=== PATIENT | female | born 1935 | race Caucasian/White ===

== ENCOUNTER 2019-09-06 09:48 | Inpatient (IN) | payer MEDICARE ==
[2019-09-06] VITALS (11 sets, daily range): BP systolic 85–156; BP diastolic 54–75
[~2019-09-06] VITALS: Ht 149.9 cm; Wt 50.9 kg
[2019-09-06] MEDS ORDERED: ONDANSETRON 4MG/2ML VIAL (J2405) IV ONE (10:15)
--- NOTE | 2019-09-06 10:48 | REP ---
CT brain: 09/06/2019. Indication: Stroke. Comparison: None. Technique: Unenhanced axial CT images of the brain were obtained from skull base to vertex. Findings: Artifact is noted in the left frontal region. No definite acute intracranial hemorrhage is present. There is no acute cortical infarction, mass effect or hydrocephalous. Diffuse volume loss is present. Patchy areas of cerebral white matter hypoattenuation are noted most consistent with chronic small vessel disease. Intracranial atherosclerotic disease is present most pronounced involving the left V4 segment. Impression: No acute intracranial process. Volume loss and sequelae of chronic microangiopathic ischemic disease. Electronically Signed by Paul Heath DO 09/06/2019 10:40 A
--- NOTE | 2019-09-06 10:54 | REP ---
CT cervical spine: 09/06/2019. Indication: Cervical spine trauma. Comparison: None. Technique: Unenhanced axial CT images of the cervical spine were performed with coronal and sagittal reconstructions provided. Findings: Soft tissue emphysema is noted throughout the neck and visualized mediastinum particularly on the left. No apical pneumothorax is detected. There is no acute fracture, subluxation or dislocation. Spondylosis is present most pronounced at C5/C6 and C6/C7 with diffuse disc osteophyte and considerable disc space narrowing. There is no evidence of hemorrhage or additional acute post traumatic sequelae within the spinal canal. Carotid atherosclerotic disease is noted. Impression: No acute osseous injury of the cervical spine. Soft tissue emphysema as described. Dedicated chest CT is recommended. Electronically Signed by Paul Heath DO 09/06/2019 10:46 A
[2019-09-06 11:00] LABS: BASO % 0.2 % (0.0-1.0); HEMATOCRIT 41.8 % (36.0-47.0); HEMOGLOBIN 12.8 g/dl (12.0-15.5); LYMPH # 0.4 10^3/uL (1.5-5.0); LYMPH % 1.8 % (24.0-44.0); MEAN CORPUSCULAR HEMOGLOBIN 29.5 pg (27.0-33.0); MEAN CORPUSCULAR HGB CONC 30.6 g/dl (32.0-36.5); MEAN CORPUSCULAR VOLUME 96.3 fl (80.0-96.0); MONO # 1.6 10^3/uL (0.0-0.8); MONO % 8.1 % (0.0-5.0); NEUTROPHILS # 17.4 10^3/uL (1.5-8.5); PLATELET COUNT, AUTOMATED 268 10^3/uL (150-450); RED BLOOD COUNT 4.34 10^6/uL (4.00-5.40); WHITE BLOOD COUNT 19.5 10^3/uL (4.0-10.0)
--- NOTE | 2019-09-06 11:11 | REP ---
CHEST, PORTABLE: AP portable view of the chest is performed. COMPARISON: No comparison study. Pneumomediastinum is present tracking up into the soft tissues of the neck. No pneumothorax is seen. There is no acute infiltrate. The heart is normal in size. There is calcification and tortuosity of the thoracic aorta. IMPRESSION: Pneumomediastinum. Dr. Pa was informed of these findings at the time of the exam at approximately 10:40 09/06/2019. Electronically Signed by Christ Avila MD 09/07/2019 10:38 A
[2019-09-06] MEDS ORDERED: INSULIN IV RATE CHANGE DOCUMENTATION ML/HR XX SCH (11:15)
[2019-09-06] MEDS ORDERED: INSULIN HUMAN REGULAR 100 UNITS in NS 99 ML IV SCH (11:15)
[2019-09-06] MEDS: NS 1,000 ML IV SCH (11:30)
[2019-09-06] MEDS ORDERED: FURO40TA2 PO (11:31)
[2019-09-06] MEDS ORDERED: LEVO150T7 PO (11:31)
[2019-09-06] MEDS ORDERED: FERR325T16 PO (11:31)
[2019-09-06] MEDS ORDERED: NOVOINJ3 SC (11:31)
[2019-09-06] MEDS ORDERED: BASA100I SC (11:31)
[2019-09-06 11:49] LABS: ALBUMIN 4.2 GM/DL (3.2-5.2); BILIRUBIN,DIRECT 0.3 MG/DL (0.0-0.2); BILIRUBIN,TOTAL 1.2 MG/DL (0.2-1.0); CK-MB VALUE MASS 12.4 NG/ML (<3.6); MAGNESIUM LEVEL 1.8 MG/DL (1.8-2.4); MB/CK RELATIVE INDEX 2.07 (< OR =4); TOTAL PROTEIN 7.6 GM/DL (6.4-8.2); TROPONIN I 1.69 NG/ML (< 0.10)
--- NOTE | 2019-09-06 12:05 | REP ---
CT CHEST WITHOUT CONTRAST: HISTORY: Trauma. Comparison is made with today's portable chest x-ray showing pneumomediastinum. CT FINDINGS: Digital preliminary exterior work helper radiograph demonstrates a pneumomediastinum seen on the radiograph. Lung todd appear clear. On axial CT images, there is no evidence of infiltrate or significant atelectasis. There is no evidence of pneumothorax or hydrothorax on either side. There is a sliding type hiatal hernia. There are granulomatous lymph node calcifications in the right hilus and in the mediastinum. There is a calcified granuloma in the right middle lobe. There is no evidence of mediastinal hematoma. Tracheobronchial tree is unremarkable. Some vascular calcifications noted. There is a low-density lesion with peripheral calcification in the spleen. This measures approximately 1.9 cm in diameter and is consistent with a small splenic cyst. No fracture or bony destructive lesion is seen. IMPRESSION: Moderate pneumomediastinum is noted. Hiatal hernia is seen. Vascular calcification is noted. Old granulomatous calcifications are noted. There is a small splenic cyst. Otherwise no acute abnormality. Electronically Signed by Sunil Wei MD 09/06/2019 05:16 P
--- NOTE | 2019-09-06 12:13 | REP ---
CT ABDOMEN AND PELVIS WITHOUT IV OR ORAL CONTRAST: HISTORY: Trauma. FINDINGS: There is a moderate size sliding type hiatal hernia. A 2 cm peripherally calcified low-density lesion is seen in the spleen consistent with a splenic cyst. No other focal splenic lesion is seen. No hepatic lesion is observed. There is no evidence of hemoperitoneum or pneumoperitoneum. No adrenal lesion is seen. No abnormality is noted in the gallbladder or in the pancreas. The kidneys are somewhat atrophic. There is no evidence of hydronephrosis or renal injury. The patient is status post right partial colectomy. There are scattered garza colonic diverticulosis most numerous in the sigmoid colon. There is no CT evidence of diverticulitis. The urinary bladder is somewhat distended but appears intact. There is spray artifact from bilateral hip prosthesis sees and metallic lumbar spine fusion hardware. Vascular calcification is seen in a normal caliber aorta. IMPRESSION: Pancolonic diverticulosis status post partial right colectomy. Urinary bladder is distended. Small cyst in the spleen. Moderate size sliding hiatal hernia. No traumatic abdominal or pelvic abnormality seen. Electronically Signed by Sunil Wei MD 09/06/2019 05:16 P
--- NOTE | 2019-09-06 15:37 | REP ---
Intracranial MRA: 09/06/2019. Indication: Stroke. Comparison: None. Findings: Significantly reduced or absent flow related enhancement is noted within the left V4 segment. No distinct left PICA flow related enhancement is present. There is signal within the ICAs as well as the MCA and ELIZABETH vessels bilaterally. No distinct ACoA is demonstrated. Small left PCoA is noted. No aneurysm or AVM is detected. Impression: Severely stenotic or occluded left V4 segment. 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 Electronically Signed by Paul Heath DO 09/06/2019 03:27 P
[2019-09-06 15:42] LABS: INR 1.04; PROTHROMBIN TIME 13.3 SECONDS (11.8-14.0)
[2019-09-06 15:43] LABS: PARTIAL THROMBOPLASTIN TIME 25.7 SECONDS (25.0-38.4)
--- NOTE | 2019-09-06 15:48 | REP ---
MRI brain: Of 07/16. Indication: Stroke. Comparison: None. Technique: Multiplanar short and long TR sequences of the brain were performed without IV Gadolinium. Findings: Predominately left hemisphere cortical restricted diffusion is present within the ELIZABETH and MCA territories as well as minimally within the left MANAGER AGRICULTURE territory. There is no significant mass effect. No significant hemorrhage is detected. There is no hydrocephalus. Right maxillary sinus fluid and small left greater than right mastoid effusions are present. Chronic left thalamic lacunar infarction is noted. There are a few small areas of elevated white matter T2 signal within the cerebral hemispheres as well. Volume loss is present. Impression: Acute left ELIZABETH and MCA infarctions without mass effect or hemorrhage. Small punctate acute left MANAGER AGRIC[employer]URE infarctions as well. Extracranial carotid/vertebral CTA is recommended. Volume loss and sequelae of chronic microangiopathic ischemic disease. Electronically Signed by Paul Heath DO 09/06/2019 03:39 P
[2019-09-06 17:54] LABS: ALBUMIN 4.2 GM/DL (3.2-5.2); BILIRUBIN,TOTAL 1.2 MG/DL (0.2-1.0); CALCIUM LEVEL 9.5 MG/DL (8.8-10.2); CREATININE FOR GFR 2.76 MG/DL (0.55-1.30); GLOMERULAR FILTRATION RATE 17.4 (>32); POTASSIUM SERUM 3.8 MEQ/L (3.5-5.1); TOTAL PROTEIN 7.6 GM/DL (6.4-8.2); TROPONIN I 2.3 NG/ML (< 0.10)
--- NOTE | 2019-09-06 17:54 | HPEPDOC ---
[facility] Medical History & Physical Date of Admission Sep 06, 2019 Date of Service: Sep 06, 2019 History and Physical CHIEF COMPLAINT: Unresponsiveness HISTORY OF PRESENT ILLNESS: Patient is 83F with PMH TIAs, IDDM, L. carotid artery stenosis s/p CEA, CKD 4, CHF of unknown type, Colon cancer s/p resection in February brought in by family after found unresponsive at home. She was last noted to be well yesterday morning/afternoon and was found this morning at about 9AM. Upon arrival, patient was moving her L. extremities but has not been alert. History provided all by daughters at bedside. In ER, multiple problems were noted including hyperglycemia with BS >700, leukocytosis, lactic acidosis, elevated Troponin and CK, as well as pneumomediastinum. Initial CT head does not show evidence of acute changes but follow up MRI shows evidence of acute CVA of the L. ELIZABETH and MCA. Per daughter, patient was noted to throw up several days prior and was found to have blood in her mouth today, thinking that it was from her dentures. No other problems were noted by daughter and no further history was able to obtain. PAST MEDICAL HISTORY: Refer to [facility] PAST SURGICAL HISTORY: back surgery, b/l hip, L. sided endarderectomy SOCIAL HISTORY: Denies tobacco, alcohol or illicit drug use. FAMILY HISTORY: Brother and father- DM ALLERGIES: Please see below. REVIEW OF SYSTEMS: Unable to obtain HOME MEDICATIONS: Please see below. PHYSICAL EXAMINATION: General: Not alert, spontaneous R. sided limb movements Eyes: Normal sclera HENT: Atraumatic, neck supple Cardiovascular: Tachycardia Pulmonary: Clear to auscultation b/l, no wheezing GI: Soft, nondistended, midline surgical scar with some erythema Skin: Warm and dry Neuro: Unable to assess LABORATORY DATA: See below. IMAGING: CT Head- Impression: No acute intracranial process. Volume loss and sequelae of chronic microangiopathic ischemic disease. CT Chest- IMPRESSION: Moderate pneumomediastinum is noted. Hiatal hernia is seen. Vascular calcification is noted. Old granulomatous calcifications are noted. There is a small splenic cyst. Otherwise no acute abnormality. CT Abdomen/pelvis- IMPRESSION: Pancolonic diverticulosis status post partial right colectomy. Urinary bladder is distended. Small cyst in the spleen. Moderate size sliding hiatal hernia. No traumatic abdominal or pelvic abnormality seen. Intracranial MRA- Impression: Severely stenotic or occluded left V4 segment. 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 MRI Brain- Impression: Acute left ELZIABETH and MCA infarctions without mass effect or hemorrhage. Small punctate acute left SLAG PRODUCTION WORKER infarctions as well. Extracranial carotid/vertebral CTA is recommended. Volume loss and sequelae of chronic microangiopathic ischemic disease. MICROBIOLOGY: Please see below. ASSESSMENT AND PLAN: 1. Acute CVA - Acute L. ELIZABETH and MCA infarction, appear to be early stages on MRI. - Patient not alert but moves L. sided extremities spontaneously. Unknown onset, last seen well one day prior to presentation. - Neurology consulted. Plan to repeat CT imaging in AM. - ASA suppository. 2. Hyperglycemia in setting of IDDM - Hyperglycemic on presentation but now down to 173. - AG 15 but NO acidosis on ABG, not likely in DKA, likely gap from lactic acidosis. - c/w SQ insulin. 3. CKD 4 - Chronic. Monitor BMP. 4. CHF - Unknown type. No documented ECHO previously. - NO clear evidence of fluid overload at this time. - Monitor. 5. Suspected sepsis with lactic acidosis - elevated troponin, CK, and lactic acid. - Infectious vs. muscle breakdown. - Start on broad spectrum Abx. IVF support, no aggressive bolus due to history of CHF. - f/u repeat lactic acid. 6. Elevated troponin - In setting of impaired kidney function and muscle breakdown, cannot definitely rule out NSTEMI however. - Family had decided against any aggressive intervention. - Monitor for now. 7. hx Colon cancer - s/p resection 8. Pneumomediastinum - suspect 2/2 esophageal tear from history of vomiting and blood around the m outh. - Family does not want surgical intervention. - c/w antibiotics and monitor. DVT ppx: TEDs in setting of bleeding Code status: DNR/DNI, no aggressive surgical interventions, no central line placement for pressors. Vital Signs Vital Signs Date Time Temp Pulse Resp B/P (MAP) Pulse Ox O2 Delivery O2 Flow Rate FiO2 09/06/19 16:45 116 26 106/60 (75) 97 Room Air 09/06/19 10:30 97.7 Laboratory Data Labs 24H Laboratory Tests 2 09/06/19 09:57: Immature Granulocyte % (Auto) 0.9, Neutrophils (%) (Auto) 89.0H, Lymphocytes (%) (Auto) 1.8L, Monocytes (%) (Auto) 8.1H, Eosinophils (%) (Auto) 0.0, Basophils (%) (Auto) 0.2, Neutrophils # (Auto) 17.4H, Lymphocytes # (Auto) 0.4L, Monocytes # (Auto) 1.6H, Eosinophils # (Auto) 0.0, Basophils # (Auto) 0.0, Nucleated Red Blood Cells % (auto) 0.0, Phosphorus Level 6.0H, Magnesium Level 1.8, Total Bilirubin 1.2H, Direct Bilirubin 0.3H, Aspartate Amino Transf (AST/SGOT) 29, Alanine Aminotransferase (ALT/SGPT) 25, Alkaline Phosphatase 96, Total Creatine Kinase 600H, Creatine Kinase MB 12.4H, Creatine Kinase MB Relative Index 2.07, Troponin I 1.69*H, Total Protein 7.6, Albumin 4.2, Albumin/Globulin Ratio 1.24 09/06/19 10:53: Bedside Prothrombin Time INR 0.9, Prothrombin Time (MISC) 11.3L 09/06/19 10:57: POC Glucose (Misc Panel) > 700*H, POC Sodium (Misc Panel) 132L, POC Potassium (Misc Panel) 4.5, POC Chloride (Misc Panel) 99, POC Total CO2 (Misc Panel) 19.0L, POC Blood Urea Nitrogen (Misc Panel 33H, POC Ionized Calcium (Misc Panel) 4.0L, POC Creatinine (Misc Panel) 2.0H, POC Hematocrit (Misc Panel) 42.0 09/06/19 12:16: POC Total CO2 (Misc Panel) 18.0L, POC pH (Misc Panel) 7.390, POC Base Excess (Misc Panel) -8.0L, POC Saturated Percent O2 (Misc) 95, POC pO2 (Misc Panel) 75.0L, POC pCO2 (Misc Panel) 28.8L, POC HCO3 (Misc Panel) 17.4L 09/06/19 12:52: Bedside Glucose (Misc Panel) 503*H 09/06/19 14:01: Bedside Glucose (Misc Panel) 379H 09/06/19 15:16: Bedside Glucose (Misc Panel) 300H 09/06/19 15:22: Prothrombin Time 13.3, Prothromb Time International Ratio 1.04, Activated Partial Thromboplast Time 25.7, Lactic Acid Level 4.8*H 09/06/19 16:58: Bedside Glucose (Misc Panel) 173H 09/06/19 17:14: CBC/BMP Laboratory Tests 09/06/19 09:57 Microbiology Microbiology 09/06/19 Blood Culture, Received Pending 09/06/19 Blood Culture, Received Pending Home Medications Scheduled Ferrous Gluconate (Ferrous Gluconate) 324 Mg Tablet, 324 MG PO DAILY Furosemide (Furosemide) 40 Mg Tablet, 40 MG PO DAILY Insulin Aspart (Novolog Flexpen) 100 Unit/1 Ml Insuln.pen, 1 DOSE SC AC PER SLIDING SCALE Insulin Glargine,Hum.rec.anlog (Basaglar Kwikpen U-100) 100 Unit/1 Ml Insuln.pen, 15 UNIT SC QHS Levothyroxine Sodium (Levothyroxine Sodium) 150 Mcg Tablet, 150 MCG PO DAILY LAST FILLED MARCH 2019, FAMILY VERIFIED ACTIVE MED Allergies Coded Allergies: Sulfa (Sulfonamide Antibiotics) (Verified Allergy, Mild, ITCH/RASH, 09/06/19) A-FIB/CHADSVASC A-FIB History Current/History of A-Fib/PAF?: No ANA MARIA SPARROW MD Sep 06, 2019 17:54
[2019-09-06] MEDS: HumaLOG INSULIN (NovoLOG) PER UNIT SC SCH (18:00)
--- NOTE | 2019-09-06 18:32 | ECGEPIP ---
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
[2019-09-06] MEDS ORDERED: DEXTROSE 50% 50 ML SYRINGE IV PRN (18:45)
[2019-09-06] MEDS ORDERED: GLUCAGON FOR INJ 1 MG VIAL (J1610) SC PRN (18:45)
[2019-09-06] MEDS ORDERED: GLUCOSE 4 GM CHEW TABLET PO PRN (18:45)
[2019-09-06] MEDS ORDERED: ASPIRIN 300 MG SUPP PR ONE (20:00)
[2019-09-06] MEDS ORDERED: VANCOMYCIN HCL 1,000 MG, VIAL MATE ADAPTER 1 EACH in D5W 250 ML IV SCH (21:00)
[2019-09-06] MEDS ORDERED: LEVEMIR (INSULIN DETEMIR) 1 UNITS/0.01ML SC SCH (21:00)
[2019-09-06] MEDS: PIPERACILLIN/TAZOBACTAM SOD 2.25 GM in D5W MINI-BAG PLUS 50 ML IV SCH (21:01)
--- NOTE | 2019-09-06 21:30 | PHACANCOPD ---
PHARMACY VANCOMYCIN DOSING Pt Demographics Demographics Patient Age:83 , Weight:52.000 , Gender: female Adjusted Body Weight Date: 09/06/19, Adjusted Body Weight: Kg Events Past 24 Hours Events Past 24 Hours: NO: Dialysis, Diuretic Therapy, Change in CrCl, Fever, Elevation in WBC, Pending Diagnostics, Pending Procedures, Other Vancomycin Vancomycin indication: Sepsis Vancomycin Target Ranges: 15-20 mcg/ml Vancomycin Load Y/N: Yes Load Dose Date Time Vancomycin Load Dose: 1000mg Date: 09/06/19 Time: 2100 Vancomycin Dose Date: 09/06/19. Current Vancomycin Dose: [ 1 gram Q24H ] Intermittent Dosing?: No Labs Labs Vital Signs Label Value Date Time Patient Temperature 97.4 degrees F 09/06/19 1700 Temperature Source Temporal 09/06/19 1700 Blood Pressure Assessment 162/87 (112) 09/06/19 1200 Blood Pressure Assessment 135/66 (89) 09/06/19 1230 Blood Pressure Assessment 134/74 (94) 09/06/19 1300 Blood Pressure Assessment 110/63 (79) 09/06/19 1523 Blood Pressure Assessment 106/60 (75) 09/06/19 1645 Blood Pressure Assessment 112/62 (79) 09/06/19 1630 Blood Pressure Assessment 108/59 (75) 09/06/19 1600 Blood Pressure Assessment 109/62 (78) 09/06/19 1530 Item Value Date Time White Blood Count 19.5 10^3/uL H 09/06/19 0957 Lactic Acid Level 4.8 MMOL/L *H 09/06/19 1522 Creatinine 2.76 MG/DL H 09/06/19 1714 Glomerular Filtration Rate 17.4 L 09/06/19 1714 Micro Microbiology 09/06/19 Blood Culture, Received Pending 09/06/19 Blood Culture, Received Pending Creatinine Clearance Date:09/06/19. Creatinine Clearance: [ 11.3 mL/min ]. Assessment and Plan Maintaining Current Dose?: Yes Reason for dose change: No Dose Change Pharmacist Note Pharmacist Note Date: 09/06/19. Pharmacist note: Patient is a 83 year old female who presented to [facility] after being found unresponsive this morning. She has a pertinent past medical history of chronic kidney disease. Ms. Jorgensen was found to have an elevated white blood cell and lactic acid. She was placed on empiric antibiotic therapy for treating sepsis. She has no previous history of vancomycin therapy at [facility], so she was given a 1000mg loading dose with a subsequent maintenance dose of 1 gram every 24 hours. A trough level was scheduled for 09/07/19, prior to her second dose, considering her weak renal function. We will continue to monitor and make adjustments as necessary. PAUL KAY [facility] Sep 06, 2019 21:30
[2019-09-07] VITALS (9 sets, daily range): BP systolic 115–170; BP diastolic 55–73
[2019-09-07] MEDS: NS 1,000 ML IV SCH ×3 (00:35→08:49)
[2019-09-07] MEDS: HumaLOG INSULIN (NovoLOG) PER UNIT SC SCH ×3 (00:54→11:22)
[2019-09-07] MEDS: PIPERACILLIN/TAZOBACTAM SOD 2.25 GM in D5W MINI-BAG PLUS 50 ML IV SCH ×2 (04:40→11:37)
[2019-09-07 05:20] LABS: HEMATOCRIT 34.5 % (36.0-47.0); HEMOGLOBIN 11.1 g/dl (12.0-15.5); MEAN CORPUSCULAR HEMOGLOBIN 28.8 pg (27.0-33.0); MEAN CORPUSCULAR HGB CONC 32.2 g/dl (32.0-36.5); MEAN CORPUSCULAR VOLUME 89.6 fl (80.0-96.0); PLATELET COUNT, AUTOMATED 216 10^3/uL (150-450); RED BLOOD COUNT 3.85 10^6/uL (4.00-5.40); WHITE BLOOD COUNT 24.2 10^3/uL (4.0-10.0)
[2019-09-07 05:42] LABS: CALCIUM LEVEL 8.9 MG/DL (8.8-10.2); CREATININE FOR GFR 2.87 MG/DL (0.55-1.30); GLOMERULAR FILTRATION RATE 16.7 (>32); POTASSIUM SERUM 3.7 MEQ/L (3.5-5.1)
--- NOTE | 2019-09-07 07:01 | CR ---
DATE OF CONSULTATION: 09/06/2019 REFERRING PHYSICIAN: Timbo Calvert MD REASON FOR CONSULTATION: Stroke. HISTORY OF PRESENT ILLNESS: Anuja Jorgensen is a 83-year-old woman with history of insulin-dependent diabetes, left carotid endarterectomy, chronic kidney disease, colon cancer who was last known fine yesterday evening. Her daughter found her this morning unresponsive on the floor. She was laying on her left side. She was unable to speak. She appeared to have right-sided weakness. Her blood sugar was more than 700 and she had blood drooling out of her mouth. She remains unresponsive and unable to provide any history. CT scan of her head was unremarkable. MRI scan of brain showed possible early left middle cerebral artery and anterior cerebral artery ischemic stroke. MRA brain showed left vertebral occlusion. PAST MEDICAL HISTORY: As per HPI. PAST SURGICAL HISTORY: History of bilateral hip replacement. Left carotid endarterectomy. SOCIAL HISTORY: There is no report of smoking, alcohol or illicit drugs. FAMILY HISTORY: Brother and father had diabetes. REVIEW OF SYSTEMS: A complete review of system was obtained and was unremarkable except as mentioned in the history of present illness. Review of systems was obtained from the patient's family. HOME MEDICATIONS: - ferrous gluconate 324 mg p.o. daily - insulin Basaglar 15 units subcutaneous at night - levothyroxine 150 mcg p.o. daily - Lasix 40 mg p.o. daily ALLERGIES: 1. SULFA. PHYSICAL EXAMINATION: Blood pressure 106/60, pulse 116, respiratory rate 26, 97% saturation on room air. Heart: Regular rate and rhythm. Lungs: Clear to auscultation. Abdomen: Soft, nontender, nondistended. No pedal edema. No musculoskeletal abnormalities. No rash. No signs of meningeal irritation. The patient is unresponsive to verbal stimuli. She withdraws to pain more so on left side. Her eyes are closed and she does not respond. Speech could not be tested, although the patient was unable to speak when her daughter found her. She has more spontaneous movement in her left arm and leg. Her right plantar is upgoing. Left plantar is downgoing. Sensory, cerebellar and gait testing could not be performed. DIAGNOSTIC STUDIES: The MRI scan and MRA brain are summarized above. WBCs were 19.5, lactic acid 4.8, creatinine 2, blood glucose decreased from [address] scan of chest showed pneumomediastinum. ASSESSMENT: 1. Possible left middle and anterior cerebral artery ischemic stroke. 2. Aphasia, coma and right hemiplegia related to above. PLAN: 1. CT angiogram of neck with contrast. It should be cleared by radiology as her creatinine is [address] scan of head tomorrow to see the extent of her ischemic stroke. On MRI scan of brain her stroke seems to be in early stages and complete size of stroke may not be clearly visible until 24 hours or more. 3. Aspirin 300 mg per rectum daily until she is awake or able to swallow. Her overall prognosis is guarded. I had a discussion with the patient's daughter and son about this.
[2019-09-07] MEDS ORDERED: ASPIRIN 300 MG SUPP PR SCH (09:00)
--- NOTE | 2019-09-07 09:24 | REP ---
CT brain: 09/07/2019. Indication: Stroke. Comparison: Yesterday. Technique: Unenhanced axial CT images of the brain were obtained from skull base to vertex. Findings: The recently described multifocal left cerebral hemisphere infarctions are now apparent by CT evaluation without hemorrhagic conversion or significant mass effect. Volume loss and sequelae of chronic microangiopathic ischemic disease are redemonstrated. Impression: Evolving left hemisphere infarctions without hemorrhagic transformation or significant mass effect. Electronically Signed by Paul Heath DO 09/07/2019 09:17 A
[2019-09-07] MEDS ORDERED: ACETAMINOPHEN 650 MG SUPP PR PRN (14:45)
[2019-09-07] MEDS ORDERED: ONDANSETRON 4MG/2ML VIAL (J2405) IV PRN (14:45)
[2019-09-07] MEDS ORDERED: LORazepam 2 MG/ML VIAL (J2060) IV PRN (14:45)
[2019-09-07] MEDS: MORPHINE 2 MG/ML 1ML VIAL (J2270) IV PRN ×2 (15:42→19:47)
[2019-09-07] MEDS: SCOPOLAMINE 1MG TRANSDERMAL PATCH TOP PRN (15:43)
--- NOTE | 2019-09-07 15:56 | IPNPDOC ---
Date Seen The patient was seen on 09/07/19. Progress Note SUBJECTIVE: Patient appeared to still be in some distress, eyes opens occasionally but does not communicate. Afebrile overnight. HR 90-100s overnight. Was called to bedside this morning as family wanted to make patient comfort measures only as patient appeared to be uncomfortable and family is concern that she continues to suffer. Patient was made BLEACHER LARD. All IV medications were stopped and medications for comfort are started along with hospice consultation. OBJECTIVE PHYSICAL EXAMINATION: VITAL SIGNS: Please see below. General: Occasional opening of eyes but no verbal communication. Appear to be uncomfortable with heavy respiratory effort. Eyes: Normal sclera HENT: Atraumatic Cardiovascular: Normal rate. Pulmonary: No wheezing appreciated, labored breathing GI: Soft, nondistended, midline surgical scar with some erythema Skin: Warm and dry Neuro: Unable to assess LABORATORY DATA, IMAGING STUDIES, MICROBIOLOGY: Please see below. ASSESSMENT AND PLAN: Patient is 83F with extensive PMH TIAs, IDDM, L. carotid artery stenosis s/p CEA, CKD 4, CHF of unknown type, Colon cancer s/p resection in February brought in by family after found unresponsive at home and found to have a L. sided ELIZABETH and MCA stroke in addition to pneumomediastinum suspicious for esophageal tear vs. carotid dissection. She was unresponsive on arrival with lactic acidosis, leukocytosis, elevated troponin and hyperglycemia BS >700. She was started on IV Abx and fluids and was also evaluated by neurology. Family has been at the bedside almost the entire time and had clearly stated that she is DNR/DNI and does not want any aggressive intervention including pressor support or any surgical procedures. Family decided to make patient comfort care after seeing minimal improvement in mental status with patient appear to be in discomfort. Vital signs, blood draws and antibiotics were stopped. Hospice consulted. VS, I&O, 24H, Fishbone Vital Signs/I&O Vital Signs Date Time Temp Pulse Resp B/P (MAP) Pulse Ox O2 Delivery O2 Flow Rate FiO2 09/07/19 12:00 98.7 88 20 147/65 (92) 97 Nasal Cannula 3.0 I&O- Last 24 Hours up to 6 AM 09/07/19 06:00 Intake Total 2320 ml Output Total 570 ml Balance 1750 ml Laboratory Data 24H LABS Laboratory Tests 2 09/06/19 16:58: Bedside Glucose (Misc Panel) 173H 09/06/19 17:14: Anion Gap 15, Glomerular Filtration Rate 17.4L, Calcium Level 9.5, Total Bilirubin 1.2H, Aspartate Amino Transf (AST/SGOT) 35, Alanine Aminotransferase (ALT/SGPT) 25, Alkaline Phosphatase 88, Troponin I 2.30#*H, Total Protein 7.6, Albumin 4.2, Albumin/Globulin Ratio 1.24 09/06/19 17:33: Bedside Glucose (Misc Panel) 153H 09/06/19 18:36: Urine Color STRAW, Urine Appearance CLEAR, Urine pH 6.0, Urine Specific Louise 1.012, Urine Protein 3+H, Urine Glucose (UA) 3+H, Urine Ketones 1+H, Urine Blood 1+H, Urine Nitrite NEGATIVE, Urine Bilirubin NEGATIVE, Urine Urobilinogen 0.2, Urine Leukocyte Esterase NEGATIVE, Urine WBC (Auto) 1, Urine RBC (Auto) 1, Urine Hyaline Casts (Auto) 0, Urine Bacteria (Auto) NEGATIVE, Urine Squamous Epithelial Cells 0, Urine Sperm (Auto) 09/06/19 20:47: Bedside Glucose (Misc Panel) 283H 09/07/19 00:39: Bedside Glucose (Misc Panel) 377H 09/07/19 05:02: Nucleated Red Blood Cells % (auto) 0.0, Anion Gap 8, Glomerular Filtration Rate 16.7L, Lactic Acid Level 1.4, Calcium Level 8.9 09/07/19 05:34: Bedside Glucose (Misc Panel) 126H 09/07/19 11:12: Bedside Glucose (Misc Panel) 183H CBC/BMP Laboratory Tests 09/06/19 17:14 09/07/19 05:02 Microbiology Microbiology 09/06/19 Blood Culture - Preliminary, Resulted No growth after 24 hours . All specim... 09/06/19 Blood Culture - Preliminary, Resulted No growth after 24 hours . All specim... ANA MARIA SPARROW MD Sep 07, 2019 15:56
[2019-09-08] MEDS: MORPHINE 2 MG/ML 1ML VIAL (J2270) IV PRN ×8 (07:13→22:59)
--- NOTE | 2019-09-08 16:27 | REP ---
CT brain: 09/08/2019. Indication: Stroke. Comparison: Yesterday. Technique: Unenhanced axial CT images of the brain were obtained from skull base to vertex. Findings: The multifocal left cerebral hemisphere infarctions continues to evolve without hemorrhagic transformation or significant mass effect. Chronic appearing left thalamic lacunar infarction is present. Volume loss and sequelae of chronic microangiopathic ischemic disease are redemonstrated. Impression: Evolving multifocal left cerebral hemisphere infarctions without hemorrhagic transformation or significant mass effect. Electronically Signed by Paul Heath DO 09/08/2019 04:18 P
--- NOTE | 2019-09-08 19:07 | IPNPDOC ---
Date Seen The patient was seen on 09/08/19. Progress Note SUBJECTIVE: Patient appeared to be more alert today and able to communicate although not clearly. Period episodes of frustrations noted. Goals of care in question as family has a difficult time deciding whether to keep patient C[facility]ANDY or continue care as she is more alert. No changes had been made as family plans to discuss with neurology prior. Repeat CT head completed. OBJECTIVE PHYSICAL EXAMINATION: VITAL SIGNS: Please see below. General: responsive, alert and follow some commands. Some verbal communication but not always clear. Eyes: Normal sclera HENT: Atraumatic Cardiovascular: Normal rate. Pulmonary: No wheezing appreciated. GI: Soft, nondistended, midline surgical scar with some erythema Skin: Warm and dry Neuro:Unable to fully assess. LABORATORY DATA, IMAGING STUDIES, MICROBIOLOGY: Please see below. ASSESSMENT AND PLAN: Patient is 83F with extensive PMH TIAs, IDDM, L. carotid artery stenosis s/p CEA, CKD 4, CHF of unknown type, Colon cancer s/p resection in February brought in by family after found unresponsive at home and found to have a L. sided ELIZABETH and MCA stroke in addition to pneumomediastinum suspicious for esophageal tear vs. carotid dissection. She was unresponsive on arrival with lactic acidosis, leukocytosis, elevated troponin and hyperglycemia BS >700. She was started on IV Abx and fluids and was also evaluated by neurology. Family has been at the bedside almost the entire time and had clearly stated that she is DNR/DNI and does not want any aggressive intervention including pressor support or any surgical procedures. Family had decided to make patient comfort care after seeing minimal improvement in mental status with patient appear to be in discomfort. Vital signs, blood draws and antibiotics were stopped. Hospice consulted. Patient now is waking up and has some form of communication. Goals of care decision in discussion among family members. VS, I&O, 24H, Fishbone Vital Signs/I&O Vital Signs Date Time Temp Pulse Resp B/P (MAP) Pulse Ox O2 Delivery O2 Flow Rate FiO2 09/08/19 09:00 3.0 09/08/19 07:13 16 09/07/19 12:00 98.7 88 147/65 (92) 97 Nasal Cannula I&O- Last 24 Hours up to 6 AM 09/08/19 06:00 Intake Total 0 ml Output Total 625 ml Balance -625 ml Laboratory Data Microbiology Microbiology 09/06/19 Blood Culture - Preliminary, Resulted No Growth after 48 hours. All Specime... 09/06/19 Blood Culture - Preliminary, Resulted No Growth after 48 hours. All Specime... ANA MARIA SPARROW MD Sep 08, 2019 19:07
[2019-09-08] MEDS ORDERED: HALOPERIDOL 5 MG/ML VIAL (J1630) IM SCH (21:00)
[2019-09-09] MEDS ORDERED: HALOPERIDOL 5 MG/ML VIAL (J1630) IM PRN (01:00)
[2019-09-09] MEDS: MORPHINE 2 MG/ML 1ML VIAL (J2270) IV PRN ×3 (13:45→22:07)
--- NOTE | 2019-09-09 18:59 | IPNPDOC ---
Date Seen The patient was seen on 09/09/19. Progress Note SUBJECTIVE: Patient condition declined today compare to yesterday. More lethargic and confused. Reportedly did not sleep well. No other events reported. OBJECTIVE PHYSICAL EXAMINATION: VITAL SIGNS: Please see below. General: responsive, alert and follow some commands. Some verbal communication but not always clear. Eyes: Normal sclera HENT: Atraumatic Cardiovascular: Normal rate. Pulmonary: No wheezing appreciated. GI: Soft, nondistended, midline surgical scar with some erythema Skin: Warm and dry Neuro:Unable to fully assess. LABORATORY DATA, IMAGING STUDIES, MICROBIOLOGY: Please see below. ASSESSMENT AND PLAN: Patient is 83F with extensive PMH TIAs, IDDM, L. carotid artery stenosis s/p CEA, CKD 4, CHF of unknown type, Colon cancer s/p resection in February brought in by family after found unresponsive at home and found to have a L. sided ELIZABETH and MCA stroke in addition to pneumomediastinum suspicious for esophageal tear vs. carotid dissection. She was unresponsive on arrival with lactic acidosis, leukocytosis, elevated troponin and hyperglycemia BS >700. She was started on IV Abx and fluids and was also evaluated by neurology. Family has been at the bedside almost the entire time and had clearly stated that she is DNR/DNI and does not want any aggressive intervention including pressor support or any surgical procedures. Family had decided to make patient comfort care after seeing minimal improvement in mental status with patient appear to be in discomfort. Vital signs, blood draws and antibiotics were stopped. Hospice consulted. Patient mental status and clinical condition waxes and wanes. Family had toured hospice facility and placed name on list, possible transfer to hospice next week if no changes in decision regarding SR. MANAGER/Hospice are made this weekend. [facility] Vital Signs Date Time Temp Pulse Resp B/P (MAP) Pulse Ox O2 Delivery O2 Flow Rate FiO2 09/09/19 17:14 18 09/08/19 09:00 3.0 09/07/19 12:00 98.7 88 147/65 (92) 97 Nasal Cannula I&O- Last 24 Hours up to 6 AM 09/09/19 06:00 Intake Total 720 ml Output Total 1000 ml Balance -280 ml Laboratory Data 24H LABS Laboratory Tests 2 09/09/19 17:55: Bedside Glucose (Misc Panel) 406H Microbiology Microbiology 12/10/19 Blood Culture - Preliminary, Resulted No Growth after 72 hours. All specime... 09/06/19 Blood Culture - Preliminary, Resulted No Growth after 72 hours. All specime... ANA MARIA SPARROW MD Sep 09, 2019 18:59
[2019-09-10] MEDS ORDERED: ONDANSETRON 4 MG ORAL DISINTEGRATING TAB (Q0162 PER 1MG) PO PRN (06:15)
[2019-09-10] MEDS: MORPHINE 10MG/0.5ML ORAL CONCENTRATE SOLUTION U/D SL PRN ×5 (06:22→18:21)
--- NOTE | 2019-09-10 18:27 | IPNPDOC ---
Date Seen The patient was seen on 09/10/19. Progress Note SUBJECTIVE: Patient much more lethargic today with agonal breathing in AM. Appear to be in more discomfort and less responsive. Has been sleeping most of the day. When awake, very weak with minimal verbal communication. OBJECTIVE PHYSICAL EXAMINATION: VITAL SIGNS: Please see below. General: responsive, lethargic. Eyes: Normal sclera HENT: Atraumatic Cardiovascular: Normal rate. Pulmonary: No wheezing appreciated. GI: Soft, nondistended, midline surgical scar with some erythema Skin: Warm and dry Neuro:Unable to fully assess. LABORATORY DATA, IMAGING STUDIES, MICROBIOLOGY: Please see below. ASSESSMENT AND PLAN: Patient is 83F with extensive PMH TIAs, IDDM, L. carotid artery stenosis s/p CEA, CKD 4, CHF of unknown type, Colon cancer s/p resection in February brought in by family after found unresponsive at home and found to have a L. sided ELIZABETH and MCA stroke in addition to pneumomediastinum suspicious for esophageal tear vs. carotid dissection. She was unresponsive on arrival with lactic acidosis, leukocytosis, elevated troponin and hyperglycemia BS >700. She was started on IV Abx and fluids and was also evaluated by neurology. Family has been at the bedside almost the entire time and had clearly stated that she is DNR/DNI and do es not want any aggressive intervention including pressor support or any surgical procedures. Family had decided to make patient comfort care after seeing minimal improvement in mental status with patient appear to be in discomfort. Vital signs, blood draws and antibiotics were stopped. Hospice consulted. Patient mental status and clinical condition waxes and wanes. 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 VS, I&O, 24H, Fishbone Vital Signs/I&O Vital Signs Date Time Temp Pulse Resp B/P (MAP) Pulse Ox O2 Delivery O2 Flow Rate FiO2 09/10/19 09:31 18 09/08/19 09:00 3.0 09/07/19 12:00 98.7 88 147/65 (92) 97 Nasal Cannula I&O- Last 24 Hours up to 6 AM 09/10/19 06:00 Intake Total 1700 ml Output Total 2450 ml Balance -750 ml Laboratory Data Microbiology Microbiology 09/06/19 Blood Culture - Preliminary, Resulted No Growth after 72 hours. All specime... 09/06/19 Blood Culture - Preliminary, Resulted No Growth after 72 hours. All specime... ANA MARIA SPARROW MD Sep 10, 2019 18:27
[2019-09-11] MEDS: MORPHINE 10MG/0.5ML ORAL CONCENTRATE SOLUTION U/D SL PRN ×8 (01:58→19:20)
--- NOTE | 2019-09-11 14:30 | IPNPDOC ---
Date Seen The patient was seen on 09/11/19. Progress Note SUBJECTIVE: Patient appear to continue declining today. Sleeps most of the day and not coherent when she tries to communicate periodically. Weakness persistent and breathing seem more labored. OBJECTIVE PHYSICAL EXAMINATION: VITAL SIGNS: Please see below. General: Minimal response, lethargic. Eyes: Normal sclera HENT: Atraumatic Cardiovascular: Normal rate. Pulmonary: No wheezing appreciated. GI: Soft, nondistended, midline surgical scar with some erythema Skin: Warm and dry Neuro:Unable to fully assess. LABORATORY DATA, IMAGING STUDIES, MICROBIOLOGY: Please see below. ASSESSMENT AND PLAN: Patient is 83F with extensive PMH TIAs, IDDM, L. carotid artery stenosis s/p CEA, CKD 4, CHF of unknown type, Colon cancer s/p resection in February brought in by family after found unresponsive at home and found to have a L. sided ELIZABETH and MCA stroke in addition to pneumomediastinum suspicious for esophageal tear vs. carotid dissection. She was unresponsive on arrival with lactic acidosis, leukocytosis, elevated troponin and hyperglycemia BS >700. She was started on IV Abx and fluids and was also evaluated by neurology. Family has been at the bedside almost the entire time and had clearly stated that she is DNR/DNI and does not want any aggressive intervention including pressor support or any surgical procedures. Family had decided to make patient comfort care after seeing minimal improvement in mental status with patient appear to be in discomfort. Vital signs, blood draws and antibiotics were stopped. Hospice consulted. Patient mental status and clinical condition waxes and wanes. Family had toured hospice facility and placed name on list, possible transfer to hospice next week if no changes in decision regarding SYBASE DEVELOPER/Hospice are made this weekend. With the initial improving in mental status the day after patient was made SYBASE DEVELOPER, there was more questioning of the right path to take. Informed family that patient can certainly have SYBASE DEVELOPER reversed if wishes but patient's status had declined since then. Not taking any solid foods or drink as much anymore. Family made clear that patient does not want feeding tubes, to be placed on dialysis or any aggressive intervention. VS, I&O, 24H, Fishbone Vital Signs/I&O Vital Signs Date Time Temp Pulse Resp B/P (MAP) Pulse Ox O2 Delivery O2 Flow Rate FiO2 09/11/19 11:56 18 Room Air 09/08/19 09:00 3.0 09/07/19 12:00 98.7 88 147/65 (70) 97 I&O- Last 24 Hours up to 6 AM 09/11/19 06:00 Intake Total 650 ml Output Total 1025 ml Balance -375 ml Laboratory Data Microbiology Microbiology 09/06/19 Blood Culture - Preliminary, Resulted No Growth after 72 hours. All specime... 09/06/19 Blood Culture - Final, Complete NO GROWTH AFTER 5 DAYS ANA MARIA SPARROW MD Sep 11, 2019 14:30
[2019-09-12] MEDS: MORPHINE 10MG/0.5ML ORAL CONCENTRATE SOLUTION U/D SL PRN ×2 (02:53→12:11)
[2019-09-12] MEDS: SCOPOLAMINE 1MG TRANSDERMAL PATCH TOP PRN (02:55)
[2019-09-12] MEDS ORDERED: LORA0.5T11 PO (10:12)
[2019-09-12] MEDS ORDERED: MORP20SO3 PO (10:12)
[2019-09-12] MEDS ORDERED: HYOS125TA PO (10:12)
--- NOTE | 2019-09-12 17:22 | DS.PDOC ---
Discharge Summary General Date of Admission Sep 06, 2019 at 16:06 Date of Discharge 09/12/19 Attending Physician: DILSHAD NEGRO MD Discharge Summary PROCEDURES PERFORMED DURING STAY: [None]. ADMITTING DIAGNOSES: 1. TIA 2. IDDM 3. Left carotid atery stenosis s/p CEA, 4. CKD stage IV, 5. CHF, Unknown type 6. Colon Cancer s/p resection in February 7. Left sided ELIZABETH and MCA stroke 8. Pneumomediastinum suspicious for esophageal tear vs. carotid dissection. DISCHARGE DIAGNOSES: 1. Left sided ELIZABETH and MCA stroke 2. Pneumomediastinum suspicious for esophageal tear vs. carotid dissection. 3. TIA 4. IDDM 5. Left carotid atery stenosis s/p CEA, 6. CKD stage IV, 7. CHF, Unknown type 8. Colon Cancer s/p resection in February COMPLICATIONS/CHIEF COMPLAINT: Altered Mental Status. HISTORY OF PRESENT ILLNESS: "Patient is 83F with extensive PMH TIAs, IDDM, L. carotid artery stenosis s/p CEA, CKD 4, CHF of unknown type, Colon cancer s/p resection in February brought in by family after found unresponsive at home and found to have a L. sided ELIZABETH and MCA stroke in addition to pneumomediastinum suspicious for esophageal tear vs. carotid dissection. HOSPITAL COURSE: "Patient was unresponsive on arrival to the hospital. She was Dx with Lactic acidosis, Leukocytosis, elevated troponins and Hyperglycemia with a blood sugar > 700. Patient was treated with IVF and antibiotics and assessed by neurology. Family declined any pressor support or surgical procedures for the patient as she is DNR/DNI. Family decided to make patient comfort care after she had little to no improvement in her mental health status and her apparent discomfort. Vital signs, blood drw\\german and antibiotics were discontinued. Hospice consulted with the family and eventually made the decision to have her transferred to a hospice facility. Patient has been unresponsive for a couple of day per her daughter. She has not taken any food and has had very little to drink. She appears very weak and no longer shows signs of awareness. DISCHARGE MEDICATIONS: Please see below. ALLERGIES: Please see below. PHYSICAL EXAMINATION ON DISCHARGE: VITAL SIGNS: Please see below. GENERAL:asleep, does not rouse HEENT:mucus membranes appear pink and moist CARDIOVASCULAR EXAMINATION: slow, distant HS RESPIRATORY EXAMINATION: slow, gasping breaths ABDOMINAL EXAMINATION: soft, nondistended EXTREMITIES: no edema SKIN: warm and dry NEUROLOGICAL EXAMINATION: unobtainable due to patient's current status LABORATORY DATA: Please see below. IMAGING: ACTIVITY: per Hospice DIET: As tolerated DISCHARGE PLAN: Discharge to Hospice care. DISPOSITION: Hospice Medical Facility. DISCHARGE INSTRUCTIONS: Management as per Hospice. ITEMS TO FOLLOWUP ON ON OUTPATIENT: N/A DISCHARGE CONDITION: Into Hospice care. TIME SPENT ON DISCHARGE: Greater than 36 minutes. Vital Signs/I&Os Vital Signs Date Time Temp Pulse Resp B/P (MAP) Pulse Ox O2 Delivery O2 Flow Rate FiO2 09/11/19 11:56 18 Room Air 09/08/19 09:00 3.0 09/07/19 12:00 98.7 88 147/65 (92) 97 I&O- Last 24 Hours up to 6 AM 09/12/19 06:00 Intake Total 60 ml Output Total 350 ml Balance -290 ml Microbiology Microbiology 09/06/19 Blood Culture - Final, Complete NO GROWTH AFTER 5 DAYS 09/06/19 Blood Culture - Final, Complete NO GROWTH AFTER 5 DAYS Discharge Medications Scheduled PRN Hyoscyamine Sulfate (Hyoscyamine Sulfate) 0.125 Mg Tab.subl, 0.125 MG PO Q4HP PRN for TERMINAL SECRETIONS Use sublingually if unable to swallow Lorazepam (Lorazepam) 0.5 Mg Tablet, 0.5 MG PO Q4HP PRN for ANXIETY/AGITATION Use sublingually if unable to swallow Morphine Sulfate (Morphine Sulfate) 100 Mg/5 Ml Solution, 0.25-1 ML PO Q2H PRN for PAIN OR DYSPNEA Use sublingually if unable to swallow Allergies Coded Allergies: Sulfa (Sulfonamide Antibiotics) (Verified Allergy, Mild, ITCH/RASH, 09/06/19) LALY ARREDONDO PA-C Sep 12, 2019 17:22
== END 2019-09-12 12:15 | disposition hospice, inpatient (51) | DRG 65 ==
LOC: M ED 09:48 → EDBD 09:48 → M ED INP 16:06 → M ICU 17:29 → M MS5PR 09-07 15:11
PROVIDERS: ADMIT Student in an Organized Health Care Education/Training Program; ATTEND Internal Medicine
DX: I63.512 Cerebral infarction due to unspecified occlusion or stenosis of left middle cerebral artery (principal); N18.4 Chronic kidney disease, stage 4 (severe); E87.2 Acidosis; G81.91 Hemiplegia, unspecified affecting right dominant side; J98.2 Interstitial emphysema; E11.22 Type 2 diabetes mellitus with diabetic chronic kidney disease; E11.65 Type 2 diabetes mellitus with hyperglycemia; R47.01 Aphasia; I65.02 Occlusion and stenosis of left vertebral artery; Z51.5 Encounter for palliative care; Z66 Do not resuscitate; I50.9 Heart failure, unspecified; Z85.038 Personal history of other malignant neoplasm of large intestine; Z90.49 Acquired absence of other specified parts of digestive tract; Z79.4 Long term (current) use of insulin; Z88.2 Allergy status to sulfonamides; Z79.899 Other long term (current) drug therapy